=== PATIENT | female | born 1950 | race Caucasian/White ===

== ENCOUNTER 2025-02-22 11:02 | Day surgery (SDC) | payer MEDICARE, OTHER ==
[2025-02-22] MEDS: Tetracaine HCl/PF 0.5% 4 ML Bottle EYEBOTH SCH (07:12)
[2025-02-22] MEDS: Lidocaine 1% PF 2 ML SDV INJECT SCH (07:13)
[2025-02-22] MEDS: Pilocarpine 4% Ophth Soln 15 ML Bot EYELF SCH (07:13)
[2025-02-22] MEDS: Cefuroxime 10 MG/ML SYRINGE EYELF SCH (07:13)
[2025-02-22] MEDS: Ofloxacin 0.3% Ophth Soln 5 ML Bottle EYELF SCH (07:14)
[2025-02-22] MEDS: Tropicamide 1% Ophth Soln 3 ML Bottle EYELF SCH (11:35)
== END 2025-02-22 13:38 | disposition home or self-care (01) ==
LOC: JD.SDS 11:02
PROVIDERS: ATTEND Ophthalmology
DX: H25.813 Combined forms of age-related cataract, bilateral (principal); H43.813 Vitreous degeneration, bilateral; H16.103 Unspecified superficial keratitis, bilateral; H16.223 Keratoconjunctivitis sicca, not specified as Sjogren's, bilateral; H02.834 Dermatochalasis of left upper eyelid; H02.831 Dermatochalasis of right upper eyelid; H57.813 Brow ptosis, bilateral; I10 Essential (primary) hypertension; Z88.8 Allergy status to other drugs, medicaments and biological substances; Z79.899 Other long term (current) drug therapy
CPT/HCPCS: 66984; A9270; J0697; J3490

== ENCOUNTER 2025-03-22 10:33 | Day surgery (SDC) | payer MEDICARE, OTHER ==
[2025-03-22] MEDS: Ofloxacin 0.3% Ophth Soln 5 ML Bottle EYERT SCH (11:28)
[2025-03-22] MEDS: Tropicamide 1% Ophth Soln 3 ML Bottle EYERT SCH (11:41)
[2025-03-22] MEDS: Tetracaine HCl/PF 0.5% 4 ML Bottle EYEBOTH SCH (12:30)
[2025-03-22] MEDS: Lidocaine 1% PF 2 ML SDV INJECT SCH (13:01)
[2025-03-22] MEDS: Cefuroxime 10 MG/ML SYRINGE EYERT SCH (13:12)
[2025-03-22] MEDS: Pilocarpine 4% Ophth Soln 15 ML Bot EYERT SCH (13:13)
== END 2025-03-22 13:25 ==
LOC: JD.SDS 10:33
PROVIDERS: ATTEND Ophthalmology
DX: H25.811 Combined forms of age-related cataract, right eye (principal); H52.31 Anisometropia; H40.031 Anatomical narrow angle, right eye; H43.813 Vitreous degeneration, bilateral; H16.103 Unspecified superficial keratitis, bilateral; H16.223 Keratoconjunctivitis sicca, not specified as Sjogren's, bilateral; H57.813 Brow ptosis, bilateral; H02.831 Dermatochalasis of right upper eyelid; H02.834 Dermatochalasis of left upper eyelid; I10 Essential (primary) hypertension; Z96.1 Presence of intraocular lens; Z88.1 Allergy status to other antibiotic agents; Z88.8 Allergy status to other drugs, medicaments and biological substances; Z79.899 Other long term (current) drug therapy
CPT/HCPCS: 66984; A9270; J0697; J2003; 00142; 99100; J3490; V2632